=== PATIENT | male | born 1965 | race Caucasian/White ===

== ENCOUNTER 2023-09-18 18:29 | Inpatient (IN) | payer SELFPAY ==
[2023-09-18 19:21] LABS: Hematocrit 62.9 % (38.8-50.0); Hemoglobin 21.8 g/dL (13.5-17.5); Mean Corpuscular HGB CONC 34.7 g/dL (32.0-36.0); Mean Corpuscular Hemoglobin 34.9 pg (27.0-33.0); Mean Corpuscular Volume 100.6 fl (81.2-95.1); Mean Platelet Volume 10.5 fl (7.4-10.4); Platelet Count 81 10x3/uL (150-450); RBC Distribution Width 13.5 % (11.5-14.5); Red Blood Cell (RBC) Count 6.25 10x6/uL (4.32-5.72); White Blood Cell (WBC) Count 8.4 10x3/uL (3.5-10.5)
[2023-09-18 19:26] LABS: ALT (SGPT) 43 U/L (8-55); AST (SGOT) 77 U/L (5-34); Albumin 4.1 g/dL (3.5-5.0); Alkaline Phosphatase 95 U/L (40-110); Anion Gap 21 mmol/L (10-20); BUN (Urea Nitrogen) 6 mg/dL (8.4-25.7); Bilirubin, Total 0.7 mg/dL (0.2-1.2); Calc. Creatinine Clearance 0 mL/min (70-130); Calcium 8.7 mg/dL (7.8-10.44); Carbon Dioxide 18 mmol/L (22-29); Chloride 92 mmol/L (98-107); Estimated GFR 102; Globulin 3.7 g/dL (2.4-3.5); Glucose 98 mg/dL (70-105); Magnesium 1.6 mg/dL (1.6-2.6); Potassium 4.9 mmol/L (3.5-5.1); Protein, Total 7.8 g/dL (6.0-8.3); Sodium 126 mmol/L (136-145)
[2023-09-18 19:32] LABS: Troponin I Less than 0.010 ng/mL (< 0.028)
[2023-09-18 19:50] LABS: Band 15 % (5-11); Lymphocytes 12 % (21-51); Monocytes 13 % (0-10); Reactive Lymphocytes 1 % (0-10)
[2023-09-18 19:56] LABS: Platelet Adequacy Comment Appears Decreased
[2023-09-18 20:04] LABS: MDiff Complete? YES
[2023-09-18] MEDS ORDERED: Albuterol 2.5 MG (3 mL) NEB ONE (20:20)
[2023-09-18] MEDS ORDERED: Ipratropium Bromide 2.5 ml Neb ONE (20:20)
[2023-09-18 20:37] LABS: SARS-CoV-2 NAA Rapid Test Not Detected (NotDetected)
[2023-09-18] MEDS ORDERED: Lorazepam 2 MG/ML VIAL IVPB PRN (20:48)
[2023-09-18] MEDS ORDERED: Acetaminophen 650 MG Suppository PR PRN (20:48)
[2023-09-18] MEDS ORDERED: Ondansetron ODT 4 MG TAB PO PRN (20:48)
[2023-09-18] MEDS ORDERED: Ipratropium/Albuterol 3 ML NEB NEB PRN (20:48)
[2023-09-18] MEDS ORDERED: Acetaminophen 325 MG TAB PO PRN (20:48)
[2023-09-18] MEDS ORDERED: Ondansetron PF 4 MG/2 ML Vial IVP PRN (20:48)
[2023-09-18] MEDS ORDERED: Lorazepam 1 MG TAB PO PRN (20:48)
[2023-09-18] MEDS ORDERED: Electrolyte Replacement Protocol 1 EACH FS PRN (21:00)
[2023-09-18] MEDS ORDERED: methylPREDNISolone Sod Succ/PF 125 MG/2 ML VIAL ONE (21:13)
[2023-09-18] MEDS ORDERED: LevoFLOXacin 750 mg/D5W 150 ml Premix Bag ONE (21:13)
[2023-09-18] MEDS: Oseltamivir 75 MG CAP PO SCH (21:25)
[2023-09-18] MEDS: Nicotine 14 MG PATCH TD SCH (21:25)
[2023-09-18] MEDS: methylPREDNISolone Sod Succ 40 MG VIAL IVP SCH (21:26)
[2023-09-18] MEDS: LevoFLOXacin 750 mg/D5W 750 MG in Premix 1 BAG IVPB SCH (21:26)
[2023-09-18] MEDS ORDERED: Sodium Chloride 0.9% 1,000 ML IV SCH (21:30)
[2023-09-18 22:03] LABS: Actual Bicarbonate (HCO3v) 22.4 mEq/L (22-28); Analyzer IN Cardio CS ER; Base Excess -4.5 mEq/L (-2 - +2); Calcium, Ionized (venous) 0.93 mmol/L (1.16-1.32); Chloride (VBG) 88 mmol/L (98-106); Hematocrit-VBG 70 % (42.0-52.0); Hemoglobin (Hb) 23.9 g/dL (13.1-17.2); Potassium (VBG) 4.35 mmol/L (3.70-5.30); Puncture Site Other Site; RapidComm Collect By LAB; Sodium 126 mmol/L (133-146); pH (venous) 7.295 (7.32-7.43)
[2023-09-18 22:11] LABS: INR-International Normal Ratio 1.6; Prothrombin Time 16.8 sec (9.5-12.1)
[2023-09-18 22:14] LABS: Alcohol Less than 10.0 mg/dL (Less than 10); Phosphorus 4.2 mg/dL (2.3-4.7)
[2023-09-18 22:16] LABS: Acetaminophen Less than 10 mcg/mL (10.0-30.0); Alcohol Less than 10.0 mg/dL (Less than 10); Magnesium 1.5 mg/dL (1.6-2.6); Salicylate Less than 8.0 mg/dL (15.0-30.0)
[2023-09-18] MEDS ORDERED: Lorazepam 2 MG/ML VIAL ONE (22:19)
[2023-09-18] MEDS ORDERED: Thiamine HCl 200 MG/2 ML VIAL ONE (22:21)
[2023-09-18] MEDS ORDERED: Magnesium 2 GM/50 ML BAG (IN WATER) ONE (22:21)
[2023-09-18] MEDS ORDERED: Famotidine/PF 20 mg/2ml Vial ONE (22:22)
[2023-09-18] MEDS: Thiamine HCl 200 MG/2 ML VIAL SLOW IVP SCH (22:43)
[2023-09-18] MEDS: Famotidine/PF 20 mg/2ml Vial SLOW IVP SCH (22:45)
[2023-09-18] MEDS: Lorazepam 2 MG/ML VIAL SLOW IVP PRN (22:45)
[2023-09-18] MEDS ORDERED: Magnesium 2 GM/50 ML(in water) 2 GM in Premix 1 BAG IVPB SCH (23:59)
[2023-09-19 00:28] LABS: Anion Gap 17 mmol/L (10-20); BUN (Urea Nitrogen) 11 mg/dL (8.4-25.7); Calc. Creatinine Clearance 0 mL/min (70-130); Calcium 8.4 mg/dL (7.8-10.44); Carbon Dioxide 20 mmol/L (22-29); Chloride 92 mmol/L (98-107); Estimated GFR 84; Glucose 131 mg/dL (70-105); Potassium 4.6 mmol/L (3.5-5.1); Sodium 124 mmol/L (136-145)
[2023-09-19 01:00] LABS: Lactic Acid 1.8 mmol/L (0.5-2.2)
[2023-09-19 03:53] LABS: Anion Gap 15 mmol/L (10-20); BUN (Urea Nitrogen) 11 mg/dL (8.4-25.7); Calc. Creatinine Clearance 0 mL/min (70-130); Calcium 8.5 mg/dL (7.8-10.44); Carbon Dioxide 22 mmol/L (22-29); Chloride 95 mmol/L (98-107); Estimated GFR 102; Glucose 152 mg/dL (70-105); Potassium 4.8 mmol/L (3.5-5.1); Sodium 127 mmol/L (136-145)
[2023-09-19 04:29] LABS: Bilirubin Neg (Negative); Blood, Urine 25 (Negative); Clarity Clear (Clear); Glucose, Urine (Dipstick) Normal (Negative); Ketone, Urine Negative (Negative); Leukocyte Negative (Negative); Nitrite Negative (Negative); Protein, Urine (Dipstick) 30 mg/dl (Neg-Trace); Urobilinogen Normal mg/dL (Less than 2)
[2023-09-19 04:37] LABS: Band 28 % (5-11); Lymphocytes 1 % (21-51); Metamyelocyte 1 % (0-0); Monocytes 7 % (0-10); Reactive Lymphocytes 1 % (0-10)
[2023-09-19 04:37] LABS: Amphetamine Not Detected (NotDetected); Barbiturates Screen Not Detected (NotDetected); Benzodiazepine Screen Not Detected (NotDetected); Cocaine Metabolite Screen Not Detected (NotDetected); Methadone Not Detected (NotDetected); Methamphetamine Not Detected (NotDetected); Opiate Screen Not Detected (NotDetected); Oxycodone Screen Not Detected (NotDetected); Phencyclidine (PCP) Not Detected (NotDetected); THC/Cannabinoid Screen Not Detected (NotDetected); Tricyclic Screen Not Detected (NotDetected)
[2023-09-19 04:38] LABS: Neutrophil 62 % (42-75)
[2023-09-19 04:39] LABS: Platelet Adequacy Comment Significant decrease; Platelet Clumps SLIGHT
[2023-09-19 04:40] LABS: Hematocrit 59.5 % (38.8-50.0); Hemoglobin 20.8 g/dL (13.5-17.5); MDiff Complete? YES; Mean Corpuscular Volume 100.2 fl (81.2-95.1); Mean Platelet Volume 10.7 fl (7.4-10.4); Platelet Count 75 10x3/uL (150-450); RBC Distribution Width 13.1 % (11.5-14.5); Red Blood Cell (RBC) Count 5.94 10x6/uL (4.32-5.72); White Blood Cell (WBC) Count 6.3 10x3/uL (3.5-10.5)
[2023-09-19 04:41] LABS: Bacteria/HPF Rare-Few HPF (None Seen); RBC/HPF 0-3 HPF (0-3); Squamous Epithelial 0-3 HPF (0-3); WBC/HPF None Seen HPF (0-3)
[2023-09-19] MEDS ORDERED: Lorazepam 2 MG/ML VIAL ONE (05:50)
[2023-09-19] MEDS ORDERED: methylPREDNISolone Sod Succ 40 MG VIAL ONE ×3 (05:51→18:43)
[2023-09-19] MEDS: Lorazepam 2 MG/ML VIAL SLOW IVP PRN (05:54)
[2023-09-19] MEDS: methylPREDNISolone Sod Succ 40 MG VIAL IVP SCH ×3 (05:55→18:40)
[2023-09-19] MEDS ORDERED: Ipratropium/Albuterol 3 ML NEB ONE ×3 (06:45→19:55)
[2023-09-19 07:04] LABS: Actual Bicarbonate (HCO3a) 23.9 mEq/L (22-28); Analyzer IN Cardio CS ER; Base Excess (BEa) -3.3 mEq/L (-2.0 to +3.0); CO2 Tension 49.4 mmHg (35.0-45.0); Calcium, Ionized (arterial) 1.18 mmol/L (1.12-1.30); Carboxyhemoglobin (COHb) 0.3 gm% (0.0-3.0); Hematocrit-ABG 66 % (42.0-52.0); Hemoglobin (Hb) 22.5 g/dL (14.0-18.0); O2 Tension (PaO2), arterial 487.7 mmHg (80.0-100.0); Potassium - ABG Lab 4.65 mmol/L (3.70-5.30); Puncture Site RRA; pH, Arterial 7.302 (7.35-7.45)
[2023-09-19] MEDS: Ipratropium/Albuterol 3 ML NEB NEB SCH ×4 (07:25→19:57)
[2023-09-19] MEDS: Budesonide 0.5 MG/2 ML NEB INH SCH ×2 (07:25→20:00)
[2023-09-19] MEDS: Arformoterol 15 MCG/2 ML NEB NEB SCH ×2 (07:26→20:03)
[2023-09-19] MEDS ORDERED: Enoxaparin 40 MG (0.4 mL) SYRINGE SC SCH (09:00)
[2023-09-19] MEDS ORDERED: Folic Acid 1 MG TAB PO SCH (09:00)
[2023-09-19] MEDS ORDERED: Enoxaparin 40 MG (0.4 mL) SYRINGE ONE (10:00)
[2023-09-19] MEDS ORDERED: Folic Acid 1 MG TAB ONE (10:00)
[2023-09-19] MEDS ORDERED: Famotidine/PF 20 mg/2ml Vial ONE ×2 (10:01→20:41)
[2023-09-19] MEDS: Multivit, Therapeutic 1 TAB PO SCH (10:26)
[2023-09-19] MEDS: Famotidine/PF 20 mg/2ml Vial SLOW IVP SCH ×2 (10:26→20:52)
[2023-09-19] MEDS: Oseltamivir 75 MG CAP PO SCH ×2 (10:26→20:52)
[2023-09-19 10:31] VITALS: BMI 33.7
[2023-09-19] MEDS ORDERED: LevoFLOXacin 750 mg/D5W 150 ml Premix Bag ONE (20:41)
[2023-09-19] MEDS ORDERED: Thiamine HCl 200 MG/2 ML VIAL ONE (20:41)
[2023-09-19] MEDS ORDERED: Lorazepam 1 MG TAB PO PRN (20:48)
[2023-09-19] MEDS: Nicotine 14 MG PATCH TD SCH (20:52)
[2023-09-19] MEDS: Thiamine HCl 200 MG/2 ML VIAL SLOW IVP SCH (20:52)
[2023-09-19] MEDS: LevoFLOXacin 750 mg/D5W 750 MG in Premix 1 BAG IVPB SCH (21:19)
[2023-09-20] MEDS ORDERED: methylPREDNISolone Sod Succ 40 MG VIAL ONE ×2 (00:04→05:51)
[2023-09-20] MEDS: methylPREDNISolone Sod Succ 40 MG VIAL IVP SCH ×2 (00:12→06:22)
[2023-09-20 04:31] LABS: #Monocytes 1.1 10x3/uL (0.0-1.1); #Neutrophils 9.7 10x3/uL (1.5-8.4); %Basophils 0.3 % (0.0-2.0); %Eosinophils 0.3 % (0.0-6.0); %Lymphocytes 6.7 % (18.0-47.0); %Monocytes 9.1 % (0.0-10.0); %Neutrophils 83.1 % (40.0-75.0); Hematocrit 63.1 % (38.8-50.0); Hemoglobin 21.7 g/dL (13.5-17.5); Mean Corpuscular HGB CONC 34.4 g/dL (32.0-36.0); Mean Corpuscular Hemoglobin 35.2 pg (27.0-33.0); Mean Corpuscular Volume 102.3 fl (81.2-95.1); Mean Platelet Volume 10.3 fl (7.4-10.4); Platelet Count 96 10x3/uL (150-450); RBC Distribution Width 13.5 % (11.5-14.5); Red Blood Cell (RBC) Count 6.17 10x6/uL (4.32-5.72); White Blood Cell (WBC) Count 11.7 10x3/uL (3.5-10.5)
[2023-09-20 04:51] LABS: ALT (SGPT) 34 U/L (8-55); AST (SGOT) 46 U/L (5-34); Albumin 3.5 g/dL (3.5-5.0); Alkaline Phosphatase 74 U/L (40-110); Anion Gap 16 mmol/L (10-20); BUN (Urea Nitrogen) 19 mg/dL (8.4-25.7); Bilirubin, Total 0.5 mg/dL (0.2-1.2); Calc. Creatinine Clearance 135 mL/min (70-130); Carbon Dioxide 20 mmol/L (22-29); Chloride 102 mmol/L (98-107); Estimated GFR 97; Globulin 3.3 g/dL (2.4-3.5); Glucose 137 mg/dL (70-105); Magnesium 1.9 mg/dL (1.6-2.6); Potassium 4.2 mmol/L (3.5-5.1); Protein, Total 6.8 g/dL (6.0-8.3); Sodium 134 mmol/L (136-145)
[2023-09-20] MEDS ORDERED: Magnesium 2 GM/50 ML(in water) 2 GM in Premix 1 BAG IVPB SCH (09:00)
[2023-09-20] MEDS: Multivit, Therapeutic 1 TAB PO SCH (09:14)
[2023-09-20 10:44] VITALS: BP 144/75; TEMP 98.3
[2023-09-20] MEDS ORDERED: Lorazepam 1 MG TAB PO PRN (20:48)
[2023-09-21] MEDS ORDERED: Lorazepam 0.5 MG TAB PO PRN (20:48)
[2023-09-21] MEDS ORDERED: Thiamine 100 MG TAB PO SCH (21:00)
== END 2023-09-20 11:03 | disposition home or self-care (01) | DRG 193 ==
LOC: CSHERS 18:29 → CSHERHOLD 20:48
PROVIDERS: ADMIT Family Medicine; ATTEND Family Medicine
PROC: 5A09357 Assistance with Respiratory Ventilation, Less than 24 Consecutive Hours, Continuous Positive Airway Pressure (ICD-10-PCS; 2023-09-18)
PROC: 4A033R1 Measurement of Arterial Saturation, Peripheral, Percutaneous Approach (ICD-10-PCS; principal; 2023-09-19)
DX: J10.1 Influenza due to other identified influenza virus with other respiratory manifestations (principal); J96.01 Acute respiratory failure with hypoxia; J44.1 Chronic obstructive pulmonary disease with (acute) exacerbation; E87.1 Hypo-osmolality and hyponatremia; E87.20 Acidosis, unspecified; F10.10 Alcohol abuse, uncomplicated; D75.89 Other specified diseases of blood and blood-forming organs; Z98.890 Other specified postprocedural states; Z89.022 Acquired absence of left finger(s); Z79.899 Other long term (current) drug therapy; D75.1 Secondary polycythemia; Z11.52 Encounter for screening for COVID-19
CPT/HCPCS: 36415; 36600; 71045; 80048; 80053; 80306; 80307; 81001; 82805; 83605; 83735; 83880; 84100; 84300; 84443; 84484; 85025; 85610; 87040; 93005; 94660; 94760; J1650; J1956; J2060; J2920; J2930; J3411; J3475; J7050; J7611; J7620; J7626; S0028